=== PATIENT | female | born 1975 | race Caucasian/White ===

== ENCOUNTER 2019-06-19 10:01 | Emergency (ER) | payer OTHER ==
[2019-06-19] MEDS ORDERED: NS 0.9% 1000 ML** 1,000 ML IV ONE (10:26)
[2019-06-19] MEDS ORDERED: Famotidine IV* 10 MG/ML 2 ML (20 mg) IV SLOW PU ONE (10:27)
--- NOTE | 2019-06-19 10:33 | ED ---
Allergic Reaction/Systemic - HPI Summary HPI Summary: This pt is a 43 y/o female presenting to [facility] via EMS from [place] for difficulty swallowing s/p eating peanut butter at 0830 today. She denies any known allergy to peanut butter. Pt reports after she ate peanut butter pt began to have sharp chest pain radiating to her back. Pt then notes her throat began to to close and had difficulty swallowing. Pt was given IM epinephrine x2, IV 500 mg benadryl, and IV 125 mg solumedrol DRY MAN. Pt currently reports feeling better but states her throat is still tight and still has some chest pain. PMHx back problems. Denies any other PMHx. Allergic to Codeine. - History of Current Complaint Chief Complaint: EDAllergicReaction Time Seen by Provider: 06/19/19 10:13 Hx Obtained From: Patient Onset/Duration: Sudden Onset, Still Present Timing: Lasting Minutes Severity Currently: None Pain Intensity: 0 Pain Scale Used: 0-10 Numeric Aggravating Factor(s): Nothing Alleviating Factor(s): Nothing Associated Signs And Symptoms: Positive: Chest Pain, Difficulty Breathing, Throat Tightening - Allergies/Home Medications Allergies/Adverse Reactions: Allergies Allergy/AdvReac Type Severity Reaction Status Date / Time peanut Allergy Difficulty Verified 06/19/19 10:54 Breathing Home Medications: Home Medications Atomoxetine (NF) [Strattera (NF)] 40 mg PO QAM 06/19/19 [History Confirmed 06/19] Naproxen TAB* [Naprosyn 250 mg TAB*] 500 mg PO BID 06/19/19 [History Confirmed 06/19/19] Prazosin CAP* [Minipress CAP*] 2 mg PO BID 06/19/19 [History Confirmed 06/19/19] Triamcinolone Acetonide [Gnp 24 Hour Nasal Allerg] 2 spray BOTH NARES DAILY PRN 06/19/19 [History Confirmed 06/19/19] buPROPion TAB* [Wellbutrin TAB*] 150 mg PO BID 06/19/19 [History Confirmed 06/19] lamoTRIgine TAB(*) [LaMICtal TAB(*)] 25 mg PO QAM 06/19/19 [History Confirmed ] lamoTRIgine TAB(*) [LaMICtal TAB(*)] 50 mg PO BEDTIME 06/19/19 [History Confirmed 06/19/19] PMH/Surg Hx/FS Hx/Imm Hx Endocrine/Hematology History: Denies: Hx Diabetes Cardiovascular History: Denies: Hx Hypercholesterolemia Musculoskeletal History: Reports: Hx Back Problems - Cancer History Hx Chemotherapy: No Hx Radiation Therapy: No Infectious Disease History: No Infectious Disease History: Denies: Traveled Outside the [place] in Last 30 Days - Social History Alcohol Use: None Substance Use Type: Reports: None Review of Systems Negative: Fever, Chills ENT: Other - POSITIVE: throat tightening, difficulty swallowing Positive: Chest Pain All Other Systems Reviewed And Are Negative: Yes Physical Exam - Summary Physical Exam Summary: GENERAL: Patient is a well-developed and nourished female who is lying comfortable in the stretcher. Patient is not in any acute respiratory distress. HEAD AND FACE: Normocephalic EYES: PERRLA, EOMI x 2. EARS: Hearing grossly intact. MOUTH: Oropharynx within normal limits. Uvula is midline and unswollen. NECK: Supple, trachea is midline, no adenopathy, no JVD, no carotid bruit. CHEST: Symmetric, no tenderness at palpation LUNGS: Clear to auscultation bilaterally. No wheezing or crackles. CVS: Regular rate and rhythm, S1 and S2 present, no murmurs or gallops appreciated. ABDOMEN: Soft, non-tender. Bowel sounds are normal. No abnormal abdominal pulsations. EXTREMITIES: Full ROM in all major joints, no edema, no cyanosis or clubbing. NEURO: Alert and oriented x 3. No acute neurological deficits. Speech is normal and follows commands. SKIN: Dry and warm Triage Information Reviewed: Yes Vital Signs On Initial Exam: Initial Vitals Temp Pulse Resp BP Pulse Ox 97.8 F 105 20 135/74 96 06/19/19 10:03 06/19/19 10:03 06/19/19 10:03 06/19/19 10:03 06/19/19 10:03 Vital Signs Reviewed: Yes Diagnostics - Vital Signs Vital Signs Temp Pulse Resp BP Pulse Ox 06/19/19 10:03 97.8 F 105 20 135/74 96 - Laboratory Result Diagrams: 06/19/19 10:43 06/19/19 10:43 Lab Statement: Any lab studies that have been ordered have been reviewed, and results considered in the medical decision making process. - Radiology Chest XR Radiology Interpretation Completed By: Radiologist Summary of Radiographic Findings: IMPRESSION: No evidence for active cardiopulmonary disease. Dr. Aiken has reviewed this report. - EKG 10:41 Cardiac Rate: Tachycardia - at 103 bpm EKG Rhythm: Sinus Tachycardia Summary of EKG Findings: Q waves in lateral leads. Re-Evaluation - Re-Evaluation First Eval Re-Evaluation Time: 12:56 Change: Improved Comment: Pt is feeling better. Will repeat troponin and EKG at 1330. Allergic Reaction Course/Dx - Course Assessment/Plan: Pt is a 43 y/o female, with no known allergy to peanut butter, presenting to [facility] via EMS from [place] for difficulty swallowing and chest pain s/p eating peanut butter at 0830 today. Pt was given IM epinephrine x2, IV 500 mg benadryl, and IV 125 mg solumedrol DRY MAN. Physical exam unremarkable, uvula is midline and unswollen. Lab results remarkable for glucose of 255, lactic acid of 3. Chest XR shows no evidence for active cardiopulmonary disease. In the ED course the pt was given IV fluids and protonix. Two troponins were negative. I discussed results with patient and she reports feeling better. She is hemodynamically stable and safe for discharge. Strict return precautions given and she will otherwise follow up with her PCP and cardiology. - Diagnoses Provider Diagnoses: Allergic reaction, Chest pain Discharge ED - Sign-Out/Discharge Documenting (check all that apply): Patient Departure - Discharge home Patient Received Moderate/Deep Sedation with Procedure: No - Discharge Plan Condition: Stable Disposition: HOME Patient Education Materials: Chest Pain (ED), General Allergic Reaction (ED) Referrals: [facility] [Outside] Chang Herzog MD [Medical Doctor] - Additional Instructions: Patient needs to be on 50 mg of prednisone daily for the next 4 days, Benadryl 50 mg Q8 PRN, Famotidine 20 mg BID, Epi pen 0.3 mg subcutaneous or IM. Regarding your chest pain follow up with Dr. Herzog, telephoto engineer. Follow up with your primary care physician in 1-3 days. RETURN TO THE EMERGENCY DEPARTMENT FOR CHANGING OR WORSENING SYMPTOMS. - Billing Disposition and Condition Condition: STABLE Disposition: Home - Attestation Statements Document Initiated by Scribe: Yes Documenting Scribe: Michelle Almonte Provider For Whom Scribe is Documenting (Include Credential): Nona Aiken MD Scribe Attestation: I, Michelle Almonte, scribed for Nona Aiken MD on 06/19/19 at 1429. Scribe Documentation Reviewed: Yes Provider Attestation: The documentation as recorded by the scribe, Michelle Almonte accurately reflects the service I personally performed and the decisions made by me, Nona Aiken MD Status of Scribe Document: Viewed
[2019-06-19 10:54] LABS: ABS Eosinophils 0.1 10^3/ul (0-0.6); ABS Lymphocytes 0.5 10^3/ul (1.0-4.8); ABS Monocytes 0.2 10^3/ul (0-0.8); ABS Neutrophils 5.8 10^3/ul (1.5-7.7); Eosinophil % 1.5 %; Hematocrit 35 % (35-47); Hemoglobin 11.9 g/dL (12.0-16.0); Lymphocyte % 7.8 %; Mean Corpuscular HGB Conc 34 g/dL (31-36); Mean Corpuscular Hemoglobin 31 pg (27-31); Mean Corpuscular Volume 90 fL (80-97); Mean Platelet Volume 9.4 fL (7.4-10.4); Platelet Count 149 10^3/uL (150-450); Red Blood Count 3.88 10^6 /uL (3.70-4.87); Red Cell Distribution Width 13 % (10-15); White Blood Count 6.6 10^3/uL (3.5-10.8)
[2019-06-19 11:01] LABS: Activated Partial Thrombo Time 32.1 seconds (26.0-38.0); INR 1.09 (0.82-1.09)
[2019-06-19 11:24] LABS: Albumin 4.1 g/dL (3.2-5.2); Albumin/Globulin Ratio 2.1 (1-3); BUN/Creatinine Ratio 21.4 (8-20); Calcium 8.6 mg/dL (8.6-10.3); EGFR African American 70.8 (>60); EGFR Non-African American 58.5 (>60); Potassium 4.6 mmol/L (3.5-5.0); Total Bilirubin 0.4 mg/dL (0.2-1.0); Total Protein 6.1 g/dL (6.4-8.9)
[2019-06-19 12:20] LABS: Urine Appearance Clear; Urine Bacteria Absent (Absent); Urine Bilirubin Negative (Negative); Urine Blood Negative (Negative); Urine Color Straw; Urine Glucose Negative (Negative); Urine Ketones Negative (Negative); Urine Nitrite Negative (Negative); Urine Protein Negative (Negative); Urine Red Blood Cell Absent (Absent); Urine Specific Gravity 1.004 (1.010-1.030); Urine Squamous Epithelial Cell Present (Absent); Urine Urobilinogen Negative (Negative); Urine White Blood Cell Trace(0-5/hpf) (Absent)
[2019-06-19 13:25] VITALS: BP 107/64
== END 2019-06-19 14:49 | disposition home or self-care (01) ==
LOC: ED 10:01
DX: T78.1XXA Other adverse food reactions, not elsewhere classified, initial encounter (principal); R07.9 Chest pain, unspecified; R06.02 Shortness of breath; R13.10 Dysphagia, unspecified; X58.XXXA Exposure to other specified factors, initial encounter; Z79.899 Other long term (current) drug therapy; Z91.010 Allergy to peanuts
CPT/HCPCS: 36415; 71045; 80053; 81003; 81015; 83605; 84484; 85025; 85610; 85730; 87086; 93005; 96361; 96374; 99283